=== PATIENT | male | born 1975 | race Caucasian/White ===

== ENCOUNTER 2021-04-03 21:42 | Emergency (ER) | payer SELFPAY ==
[~2021-04-03] VITALS: Ht 177.8 cm; Wt 61.2 kg
[2021-04-03] MEDS ORDERED: GLUCAGON EMERGENCY 1 MG/KIT IV ONE (22:30)
[2021-04-03] MEDS ORDERED: FAMOTIDINE 20MG/2ML IV (PEPCID) IVP ONE (22:30)
--- NOTE | 2021-04-03 23:02 | ED GI ---
General Chief Complaint: Foreign Body Stated Complaint: STEAK STUCK IN THROAT Nursing Triage Note: food bolus x1 hr after eating steak. reports unable to pass steak. Sepsis Screen: No Definite Risk Source of Information: Patient Exam Limitations: No Limitations History of Present Illness Date Seen by Provider: Apr 03, 2021 Time Seen by Provider: 22:10 Initial Comments This 45-year-old gentleman presents to the emergency room with discomfort in the mid chest and inability to swallow food, fluids, or saliva after having a piece of steak get stuck in his esophagus approximately an hour prior to arrival. He reports occasionally having heartburn but otherwise he denies having any significant GI symptoms. He drinks alcohol a few days per week and does not smoke cigarettes. He has never had endoscopy. He intermittently takes antiacid medications. Allergies and Home Medications Allergies Coded Allergies: No Known Drug Allergies (Unverified , 04/03/21) Home Medications No Active Prescriptions or Reported Meds Patient Home Medication List Home Medication List Reviewed: Yes Review of Systems Review of Systems Constitutional: no symptoms reported EENTM: No Symptoms Reported Respiratory: No Symptoms Reported Cardiovascular: No Symptoms Reported Gastrointestinal: See HPI Genitourinary: No Symptoms Reported Musculoskeletal: no symptoms reported Skin: no symptoms reported Psychiatric/Neurological: No Symptoms Reported Endocrine: No Symptoms Reported Hematologic/Lymphatic: No Symptoms Reported Past Bhqqgxm-Hrihod-Ohwtam Hx Past Med/Social Hx: Reviewed Nursing Past Med/Soc Hx Patient Social History Alcohol Use: Occasionally Uses Smoking Status: Never a Smoker Type Used: Smokeless Tobacco 2nd Hand Smoke Exposure: No Recent Infectious Disease Expo: No Recent Hopitalizations: No Immunizations Up To Date Tetanus Booster (TDap): Unknown Seasonal Allergies Seasonal Allergies: No Past Medical History Surgeries: No Respiratory: No Cardiac: No Neurological: No Genitourinary: No Gastrointestinal: Yes Gastroesophageal Reflux Musculoskeletal: No Endocrine: No HEENT: No Cancer: No Psychosocial: No Integumentary: No Blood Disorders: No Physical Exam Vital Signs Vital Signs - First Documented 04/03/21 21:51 Temp 36.7 Pulse 100 Resp 18 B/P (MAP) 157/113 (128) Pulse Ox 100 O2 Delivery Room Air Capillary Refill : Less Than 3 Seconds Height/Weight/BMI Height: '" Weight: lbs. oz. 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, no motor/sensory deficits, al ert, normal mood/affect, oriented x 3 Skin: normal color, warm/dry Progress/Results/Core Measures Results/Orders My Orders Orders - MARA MEJIAS MD Ed Iv/Invasive Line Start (04/03/21 22:21) Glucagon Emergency Kit (Glucagon Emergen (04/03/21 22:30) Famotidine Injection (Pepcid Injection) (04/03/21 22:30) Medications Given in ED Current Medications Medications Dose Ordered Sig/Urmila Route Start Time Stop Time Status Last Admin Dose Admin Famotidine 20 mg ONCE ONCE IVP 04/03/21 22:30 04/03/21 22:31 DC 04/03/21 22:30 20 MG Glucagon 1 mg ONCE ONCE IV 04/03/21 22:30 04/03/21 22:31 DC 04/03/21 22:30 1 MG Vital Signs/I&O 04/03/21 04/03/21 21:51 23:03 Temp 36.7 36.6 Pulse 100 89 Resp 18 18 B/P (MAP) 157/113 (128) 156/107 (128) Pulse Ox 100 99 O2 Delivery Room Air Room Air Blood Pressure Mean: 128 Progress Progress Note : Progress Note Patient received glucagon and Pepcid. A short time later he regurgitated the steak and then was able to swallow water and saliva. See discharge instructions for further discussion. Departure Impression Primary Impression: Esophageal obstruction Disposition: HOME, SELF-CARE Condition: Improved Departure-Patient Inst. Decision time for Depature: 23:00 Referrals: NO,LOCAL PHYSICIAN (PCP/Family) Primary Care Physician Patient Instructions: Acid Reflux and Gastroesophageal Reflux Disease in Adults, Esophageal Stricture Add. Discharge Instructions: Eat very carefully for the next couple of weeks. Chew your food very well and drink plenty of water during your meals. Avoid food that is difficult to chew and swallow. Take an antacid such as Nexium, Pepcid, or omeprazole daily for the next couple of months and. Avoid the following: Eating large meals, eating close to bedtime, caffeine, carbonation, chocolate, citrus fruits and juices, tomato products, spicy foods, mints, alcohol, tobacco, NSAID medications such as ibuprofen or naproxen, or anything else you know irritate your stomach. Follow-up with your primary care provider soon as possible. Return to care if you have worsening symptoms. All discharge instructions reviewed with patient and/or family. Voiced understanding. Scripts No Active Prescriptions or Reported Meds MARA MEJIAS MD Apr 03, 2021 23:02
[2021-04-03 23:03] VITALS: BP 156/107
== END 2021-04-03 23:05 | disposition home or self-care (01) ==
LOC: EDUNIT# 21:42 → ER 21:44
DX: K22.2 Esophageal obstruction (principal)

== ENCOUNTER 2022-05-19 21:52 | Emergency (ER) | payer SELFPAY ==
[~2022-05-19] VITALS: Ht 177.8 cm; Wt 65.0 kg
[2022-05-19] MEDS ORDERED: GLUCAGON EMERGENCY 1 MG/KIT IV ONE (23:00)
[2022-05-19] MEDS ORDERED: PANT40TA2 PO (23:26)
--- NOTE | 2022-05-19 23:26 | ED GI ---
General Chief Complaint: Foreign Body Stated Complaint: FOOD BOLUS Nursing Triage Note: PT ARRIVAL TO ER WITH COMPLAINT OF FEELING LIKE A PIECE OF PORK STEAK IS STUCK IN HIS THROAT JUST ABOVE HIS STERNUM. PT STATES THAT HE CAN DRINK AND SWALLOW WITHOUT DIFFICULTY, BUT STATES THAT HE CAN DEFINITELY FEEL IT STUCK THERE. STATES THAT IT STARTED ABOUT 2 HOURS AGO. Allergies and Home Medications Allergies Coded Allergies: No Known Drug Allergies (Unverified , 04/03/21) Patient Home Medication List No Active Prescriptions or Reported Meds Past Wznvyyb-Dsddai-Kypfxu Hx Patient Social History Tobacco Use?: No Use of E-Cig and/or Vaping dev: No Substance use?: No Alcohol Use?: Yes Alcohol type: Beer, Hard Liquor Alcohol Frequency: Several times a month Pt feels they are or have been: No Immunizations Up To Date Tetanus Booster (TDap): Unknown Influenza Vaccine Up-to-Date: No; Not Current Seasonal Allergies Seasonal Allergies: No Past Medical History Surgeries: No Respiratory: No Cardiac: No Neurological: No Genitourinary: No Gastrointestinal: Yes Gastroesophageal Reflux Musculoskeletal: No Endocrine: No HEENT: No Cancer: No Psychosocial: No Integumentary: No Blood Disorders: No Physical Exam Vital Signs Vital Signs - First Documented 05/19/22 22:29 Temp 37.0 Pulse 91 Resp 18 B/P (MAP) 181/107 (131) Pulse Ox 97 O2 Delivery Room Air Capillary Refill : Less Than 3 Seconds Height/Weight/BMI Height: '" Weight: lbs. oz. kg; 20.00 BMI Method: Progress/Results/Core Measures Results/Orders My Orders Orders - BETTY VARGAS DO Ed Iv/Invasive Line Start (05/19/22 22:51) Glucagon Emergency Kit (Glucagon Emergen (05/19/22 23:00) Pantoprazole Tablet (Protonix Tablet) (05/19/22 23:30) Medications Given in ED Current Medications Medications Dose Ordered Sig/Urmila Route Start Time Stop Time Status Last Admin Dose Admin Glucagon 1 mg ONCE ONCE IV 05/19/22 23:00 05/19/22 23:01 DC 05/19/22 23:11 1 MG Vital Signs/I&O 05/19/22 22:29 Temp 37.0 Pulse 91 Resp 18 B/P (MAP) 181/107 (131) Pulse Ox 97 O2 Delivery Room Air Blood Pressure Mean: 131 Departure Impression Primary Impression: Esophageal obstruction Additional Impression: FOOD BOLUS IN ESOPHAGUS Disposition: 01 HOME, SELF-CARE Condition: Improved Departure-Patient Inst. Decision time for Depature: 23:24 Referrals: ANALY TORRES MD,LOCAL PHYSICIAN (PCP) Primary Care Physician Patient Instructions: Food Obstruction Add. Discharge Instructions: SOFT FOODS--BABY FOOD CONSISTENCY, AND LOTS OF FLUIDS AVOID ANY SOLID FOOD AT THIS TIME FOLLOW UP WITH DR. TORRES, SURGEON, THIS WEEK FOR FURTHER CARE All discharge instructions reviewed with patient and/or family. Voiced understanding. Scripts Pantoprazole Sodium (Protonix) 40 Mg Tablet. 40 MG PO DAILY, #15 TAB Prov: BETTY VARGAS DO 05/19/22 BETTY VARGAS DO May 19, 2022 23:26
[2022-05-19] MEDS ORDERED: PANTOPRAZOLE 40 MG (PROTONIX) TAB PO ONE (23:30)
[2022-05-19 23:54] VITALS: BP 181/107
== END 2022-05-19 23:53 | disposition home or self-care (01) ==
LOC: EDUNIT# 21:52 → ER 21:54
DX: T18.128A Food in esophagus causing other injury, initial encounter (principal); Z28.310 Unvaccinated for COVID-19; W45.8XXA Other foreign body or object entering through skin, initial encounter